=== PATIENT | male | born 2005 | race Caucasian/White ===

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

== ENCOUNTER 2023-11-05 14:49 | Emergency (ER) | payer MEDICAID, OTHER ==
[2023-11-05 15:24] VITALS: RESP 18
[2023-11-05] MEDS: CEPHALEXIN 500 MG CAP PO STA (15:29)
[2023-11-05] MEDS: LIDOCAINE 1%-EPI 1:100,000 20 ML VIAL SQ STA (15:29)
--- NOTE | 2023-11-05 16:31 | ED ---
Wound/Laceration HPI - General Chief Complaint: Wound/Laceration Stated Complaint: skateboard accident, left arm wound, Time Seen by Provider: 11/05/23 15:15 Source: patient, RN notes reviewed, old records reviewed Mode of arrival: ambulatory Limitations: no limitations - History of Present Illness Initial Comments: This is a 18-year-old male to the ER for evaluation today. [place] for evaluation regards to right upper extremity injury after a fall. Laceration sustained after skateboard accident. -: days(s) Extremity Location: Right: Elbow Place: outdoors Context: accidental Associated Symptoms: none Treatments Prior to Arrival: bandage - Related Data Home Medications Medication Instructions Recorded Confirmed Atomoxetine HCl [Strattera] 40 mg PO QAM 04/25/15 04/25/15 Melatonin 6 mg PO DAILY 04/25/15 04/25/15 Methylphenidate HCl [Concerta] 54 mg PO DAILY 04/25/15 04/25/15 cloNIDine HCL [Catapres] 0.2 mg PO DAILY 04/25/15 04/25/15 Allergies Allergy/AdvReac Type Severity Reaction Status Date / Time No Known Allergies Allergy Verified 11/05/23 14:56 Review of Systems ROS Statement: Those systems with pertinent positive or pertinent negative responses have been documented in the HPI. ROS Other: All systems not noted in ROS Statement are negative. Past Medical History Past Medical History: No Reported History History of Any Multi-Drug Resistant Organisms: None Reported Past Surgical History: No Surgical Hx Reported Past Psychological History: ADD/ADHD Smoking Status: Never smoker Past Alcohol Use History: None Reported Past Drug Use History: None Reported General Exam Limitations: no limitations General appearance: alert, in no apparent distress Head exam: Present: atraumatic, normocephalic, normal inspection Eye exam: Present: normal appearance, PERRL, EOMI. Absent: scleral icterus, conjunctival injection, periorbital swelling ENT exam: Present: normal exam, mucous membranes moist Neck exam: Present: normal inspection. Absent: tenderness, meningismus, lymphadenopathy Respiratory exam: Present: normal lung sounds bilaterally. Absent: respiratory distress, wheezes, rales, rhonchi, stridor Cardiovascular Exam: Present: regular rate, normal rhythm, normal heart sounds. Absent: systolic murmur, diastolic murmur, rubs, gallop, clicks GI/Abdominal exam: Present: soft, normal bowel sounds. Absent: distended, tenderness, guarding, rebound, rigid Extremities exam: Present: tenderness, normal capillary refill, other (77 patient). Absent: pedal edema, joint swelling, calf tenderness Back exam: Present: normal inspection Neurological exam: Present: alert, oriented X3, CN II-XII intact Psychiatric exam: Present: normal affect, normal mood Skin exam: Present: warm, dry, intact, normal color. Absent: rash Course Vital Signs 11/05/23 11/05/23 14:54 17:01 Temperature 98.8 F 98.6 F Pulse Rate 105 H 91 Respiratory 18 18 Rate Blood Pressure 132/91 129/89 O2 Sat by Pulse 99 99 Oximetry - Reevaluation(s) Reevaluation #1: Medical records reviewed with Reevaluation #2: Patient symptoms improved Reevaluation #3: Patient informed of results and questions answered Reevaluation #4: Was pt. sent in by a medical professional or institution (, PA, CONTENT PRODUCTION SPECIALIST, urgent care, hospital, or custodial...) When possible be specific @ -no Did you speak to anyone other than the patient for history (EMS, parent, family, police, friend...)? What history was obtained from this source @ -no Did you review nursing and triage notes (agree or disagree)? Why? @ -agree Are old charts reviewed (outside hosp., previous admission, EMS record, old EKG, old radiological studies, urgent care reports/EKG's, custodial records)? Report findings @ -yes Differential Diagnosis (chest pain, altered mental status, abdominal pain women, abdominal pain men, vaginal bleeding, weakness, fever, dyspnea, syncope, headache, dizziness, GI bleed, back pain, seizure, CVA, palpatations, mental health, musculoskeletal)? @ -prior EKG interpreted by me (3pts min.). @ -no X-rays interpreted by me (1pt min.). @ -yes negative for acute disease CT interpreted by me (1pt min.). @ -no U/S interpreted by me (1pt. min.). @ -no What testing was considered but not performed or refused? (CT, X-rays, U/S, labs)? Why? @ -none What meds were considered but not given or refused? Why? @ -none Did you discuss the management of the patient with other professionals (professionals i.e. , PA, CONTENT PRODUCTION SPECIALIST, lab, RT, psych nurse, social service director, shell molding roller blast operator, teacher, military source operations officer, behavioral health case manager)? Give summary @ -no Was smoking cessation discussed for >3mins.? @ -no Were there social determinants of health that impacted care today? How? (Homelessness, low income, unemployed, alcoholism, drug addiction, tr ansportation, low edu. Level, literacy, decrease access to med. care, fci, rehab)? @ -none Was there de-escalation of care discussed even if they declined (Discuss DNR or withdrawal of care, Hospice)? DNR status @ -no What co-morbidities impacted this encounter? (DM, HTN, Smoking, COPD, CAD, Cancer, CVA, ARF, Chemo, Hep., AIDS, mental health diagnosis, sleep apnea, morbid obesity)? @ -none Was patient admitted / discharged? Hospital course, mention meds given and route, prescriptions, significant lab abnormalities, going to OR and other pertinent info. @ -18 male to the ER after a fall causing left elbow injury, laceration was repaired here in the ER patient can be discharged home Discharge Was critical care preformed (if so, how long)? @ -no Undiagnosed new problem with uncertain prognosis? @ -no Drug Therapy requiring intensive monitoring for toxicity (Heparin, Nitro, Insulin, Cardizem)? @ -no Were any procedures done? @ -Yes laceration repair Diagnosis/symptom? @ -Elbow laceration Acute, or Chronic, or Acute on Chronic? @ -Acute Uncomplicated (without systemic symptoms) or Complicated (systemic symptoms)? @ -Complicated Side effects of treatment? @ -no Exacerbation, Progression, or Severe Exacerbation? @ -exacerbation Poses a threat to life or bodily function? How? (Chest pain, [place], [place], pneumonia, PE, COPD, DKA, ARF, appy, cholecystitis, CVA, Diverticulitis, Homicidal, Suicidal, threat to staff... and all critical care pts) @ -no Procedures - Laceration Laceration #1 Consent Obtained: verbal consent Indication: laceration Site: upper extremity Size (cm): 7 Description: linear Depth: simple, single layer Anesthesia Technique: local infiltration Type of Sutures: nylon Size of Sutures: 3-0, 4-0 Technique: simple, interrupted Complications: pain Patient Tolerated Procedure: well Medical Decision Making - Medical Decision Making 18 male to ER for evaluation of fall fall with elbow laceration. Laceration was repaired here in the ER. Patient can be discharged home - Radiology Data Radiology results: report reviewed (X-ray elbow negative for acute disease), image reviewed Disposition Clinical Impression: Laceration, Laceration of right elbow Disposition: HOME SELF-CARE Condition: Good Instructions (If sedation given, give patient instructions): Care For Your Stitches (ED), Laceration (ED) Is patient prescribed a controlled substance at d/c from ED?: No Referrals: None,Stated [Primary Care Provider] - 1-2 days Time of Disposition: 16:30
--- NOTE | 2023-11-05 16:40 | XR ---
EXAMINATION TYPE: XR elbow limited RT DATE OF EXAM: 11/05/2023 4:05 PM CLINICAL INDICATION:Male, 18 years old with history of fall; COMPARISON: None TECHNIQUE: XR elbow limited RT; elbow was examined in AP, lateral, and oblique projections. FINDINGS: No evidence of any acute osseous pathology, joint dislocation, or soft tissue swelling is n oted. No evidence of joint effusion is present. No radiopaque foreign body. IMPRESSION: No evidence of acute fracture.
[2023-11-05] MEDS: CEPHALEXIN 500MG STARTER PACK 4 CAP BTL PO STA (16:51)
[2023-11-05] MEDS: DIPH,PERTUS(ACELL)TETVAC-LF 0.5 ML VIAL IM ONE (16:51)
[2023-11-05 17:06] VITALS: BP 129/89; PULSE 91; TEMP 98.6
== END 2023-11-05 17:06 | disposition home or self-care (01) ==
LOC: EC 14:49
DX: S51.011A Laceration without foreign body of right elbow, initial encounter (principal); Z23 Encounter for immunization; V00.131A Fall from skateboard, initial encounter; W25.XXXA Contact with sharp glass, initial encounter; Y93.51 Activity, roller skating (inline) and skateboarding
CPT/HCPCS: 12002; 90471; 90715; 99283